=== PATIENT | female | born 1975 | race Caucasian/White ===

== ENCOUNTER 2023-09-18 17:10 | Emergency (ER) | payer OTHER ==
[2023-09-18 17:19] VITALS: BP 132/61; PULSE 81; RESP 18; TEMP 98.6; BMI 26.6
[2023-09-18] MEDS ORDERED: TETRACAINE 0.5% HCL 0.6ML DROPPER.BOTTLE OS ONE (18:42)
[2023-09-18] MEDS ORDERED: FLUORESCEIN NA 1 EA STRIP OS ONE (18:42)
[2023-09-18] MEDS ORDERED: FLUORESCEIN NA 1 EA STRIP ONE (18:43)
[2023-09-18] MEDS ORDERED: TETRACAINE 0.5% OPHTH SOLN 2 ML BOTTLE ONE (18:43)
[2023-09-18] MEDS ORDERED: CYCLOPENTOLATE HCL 1% OPHTH SOLN 2 ML BOTTLE OS ONE (21:12)
== END 2023-09-18 22:31 | disposition short-term general hospital (02) ==
LOC: JERFT 17:10
DX: H57.12 Ocular pain, left eye (principal); L29.9 Pruritus, unspecified; H57.89 Other specified disorders of eye and adnexa; H53.8 Other visual disturbances; H20.012 Primary iridocyclitis, left eye
CPT/HCPCS: 99285-25